=== PATIENT | female | born 1955 | race Caucasian/White ===

== ENCOUNTER → 2017-10-24 | Outpatient (CLI) | payer OTHER | LOC: BC 00:25 | DX: Z12.31 Encounter for screening mammogram for malignant neoplasm of breast (principal) ==

== ENCOUNTER → 2017-12-07 | Outpatient (CLI) | payer OTHER | LOC: ULTRA 14:03 | DX: N60.01 Solitary cyst of right breast (principal) ==

== ENCOUNTER → 2019-10-07 | Outpatient (CLI) | payer OTHER | LOC: RAD 10:48 | DX: N60.02 Solitary cyst of left breast (principal); Z85.3 Personal history of malignant neoplasm of breast ==

== ENCOUNTER → 2020-10-22 | Outpatient (CLI) | payer OTHER | LOC: BC 09:38 | DX: Z12.31 Encounter for screening mammogram for malignant neoplasm of breast (principal) ==